=== PATIENT | male | born 1940 | race Caucasian/White ===

== ENCOUNTER → 2017-01-06 | Outpatient (CLI) | payer MEDICARE, OTHER ==
[~2017-01-06] VITALS: Ht 168.9 cm; Wt 59.0 kg
[~2017-01-06] MED LIST: FINA5TAB41 PO; FLAX340P PO; LEVO50TA4 PO; LORA10TA7 PO; PRAM0.258 PO; TAMS0.4C32 PO; UBID100C10 PO; VITAD1000 PO; [UNRECOGNIZED DRUG - CODE] MC
[2017-01-06 11:26] VITALS: BP 102/71
== END | disposition home or self-care (01) ==
LOC: SRCNTR 11:17
PROVIDERS: ATTEND Internal Medicine Critical Care Medicine
DX: E03.9 Hypothyroidism, unspecified (principal); J47.9 Bronchiectasis, uncomplicated; J32.9 Chronic sinusitis, unspecified; G47.61 Periodic limb movement disorder
CPT/HCPCS: G0463

== ENCOUNTER → 2017-06-06 | Outpatient (CLI) | payer MEDICARE, OTHER ==
[~2017-06-06] VITALS: Ht 168.9 cm; Wt 59.5 kg
[2017-06-06 13:41] VITALS: BP 104/67
== END | disposition home or self-care (01) ==
LOC: SRCNTR 13:11
PROVIDERS: ATTEND Internal Medicine Critical Care Medicine
DX: J47.9 Bronchiectasis, uncomplicated (principal); E03.9 Hypothyroidism, unspecified; J32.9 Chronic sinusitis, unspecified; G47.61 Periodic limb movement disorder; N40.0 Benign prostatic hyperplasia without lower urinary tract symptoms; G47.33 Obstructive sleep apnea (adult) (pediatric)
CPT/HCPCS: G0463

== ENCOUNTER → 2017-12-30 | Outpatient (CLI) | payer MEDICARE, OTHER ==
[~2017-12-30] VITALS: Ht 168.9 cm; Wt 61.0 kg
[2017-12-30 12:07] VITALS: BP 98/63
== END | disposition home or self-care (01) ==
LOC: SRCNTR 11:56
PROVIDERS: ATTEND Internal Medicine Critical Care Medicine
DX: G47.33 Obstructive sleep apnea (adult) (pediatric) (principal); J47.9 Bronchiectasis, uncomplicated; J32.9 Chronic sinusitis, unspecified; G47.61 Periodic limb movement disorder; E03.9 Hypothyroidism, unspecified; N40.0 Benign prostatic hyperplasia without lower urinary tract symptoms
CPT/HCPCS: G0463

== ENCOUNTER → 2018-07-27 | Outpatient (CLI) | payer MEDICARE, OTHER ==
[~2018-07-27] VITALS: Ht 167.6 cm; Wt 60.0 kg
[~2018-07-27] MED LIST changes: -LORA10TA7 PO; -UBID100C10 PO
[2018-07-27 15:51] VITALS: BP 101/56
== END | disposition home or self-care (01) ==
LOC: SRCNTR 15:34
PROVIDERS: ATTEND Internal Medicine Critical Care Medicine
DX: J47.1 Bronchiectasis with (acute) exacerbation (principal); R91.8 Other nonspecific abnormal finding of lung field; E03.9 Hypothyroidism, unspecified; J32.9 Chronic sinusitis, unspecified; N40.0 Benign prostatic hyperplasia without lower urinary tract symptoms
CPT/HCPCS: G0463

== ENCOUNTER → 2018-12-10 | Outpatient (CLI) | payer MEDICARE, OTHER ==
[~2018-12-10] VITALS: Ht 170.2 cm; Wt 61.0 kg
[2018-12-10 10:56] VITALS: BP 121/51
== END | disposition home or self-care (01) ==
LOC: SRCNTR 10:41
PROVIDERS: ATTEND Internal Medicine Critical Care Medicine
DX: J47.9 Bronchiectasis, uncomplicated (principal); K86.1 Other chronic pancreatitis; E78.5 Hyperlipidemia, unspecified; Z00.00 Encounter for general adult medical examination without abnormal findings; R91.8 Other nonspecific abnormal finding of lung field; J32.9 Chronic sinusitis, unspecified
CPT/HCPCS: G0463

== ENCOUNTER → 2019-01-13 | Outpatient (CLI) | payer MEDICARE, OTHER ==
[~2019-01-13] VITALS: Ht 170.2 cm; Wt 58.5 kg
[~2019-01-13] MED LIST changes: +IOVERSOL 320 MG/ML 100 ML VIAL ONE; +SODIUM CHLORIDE 0.9% 100 ML ONE; -[UNRECOGNIZED DRUG - CODE] MC
[2019-01-13 15:26] VITALS: BP 110/65
== END | disposition home or self-care (01) ==
LOC: SRCNTR 15:11
PROVIDERS: ATTEND Internal Medicine Critical Care Medicine
DX: J47.9 Bronchiectasis, uncomplicated (principal); R91.8 Other nonspecific abnormal finding of lung field; E03.9 Hypothyroidism, unspecified; J32.9 Chronic sinusitis, unspecified
CPT/HCPCS: G0463; J7050; Q9967

== ENCOUNTER 2020-04-01 19:24 | Emergency (ER) | payer MEDICARE, OTHER ==
[~2020-04-01] VITALS: Ht 170.2 cm; Wt 57.3 kg
[~2020-04-01 19:24] MED LIST changes: +CHOL100018 PO; +FINA-27 PO; -FINA5TAB41 PO; -IOVERSOL 320 MG/ML 100 ML VIAL ONE; -SODIUM CHLORIDE 0.9% 100 ML ONE; +TAMS-13 PO; -TAMS0.4C32 PO; -VITAD1000 PO
[2020-04-01] MEDS ORDERED: QUEtiapine FUMARATE 100 MG TABLET PO PRN (20:45)
[2020-04-01] MEDS ORDERED: LORazepam 2 MG TABLET PO PRN (20:45)
[2020-04-01] MEDS ORDERED: ZOLPIDEM TARTRATE 10 MG TABLET PO PRN (20:45)
[2020-04-01 22:19] VITALS: BP 130/70
== END 2020-04-01 22:20 | disposition home or self-care (01) ==
LOC: EMS 19:24
DX: S93.401A Sprain of unspecified ligament of right ankle, initial encounter (principal); W10.9XXA Fall (on) (from) unspecified stairs and steps, initial encounter; Y93.89 Activity, other specified; Y92.89 Other specified places as the place of occurrence of the external cause; Y99.8 Other external cause status

== ENCOUNTER 2024-11-10 08:43 | Emergency (ER) | payer MEDICARE, OTHER ==
[~2024-11-10] VITALS: Ht 165.1 cm; Wt 63.6 kg
[~2024-11-10 08:43] MED LIST changes: -CHOL100018 PO; -FLAX340P PO; -PRAM0.258 PO; +PRAM0.259 PO; -TAMS-13 PO; +TAMS0.4C94 PO
[2024-11-10 08:55] VITALS: BP 115/78; PULSE 72; RESP 18; TEMP 98; O2SAT 99
[2024-11-10 09:27] LABS: COVID AG,FIA SOURCE NASAL SWAB
[2024-11-10 09:48] LABS: SARS-COV2 (COVID) ANTIGEN,FIA Negative (Negative)
[2024-11-10 09:49] LABS: INFLUENZA TYPE A NEGATIVE FOR TYPE A (NEGATIVE); INFLUENZA TYPE B NEGATIVE FOR TYPE B (NEGATIVE)
== END 2024-11-10 10:18 | disposition home or self-care (01) ==
LOC: EMS 08:53
DX: R09.89 Other specified symptoms and signs involving the circulatory and respiratory systems (principal); E03.9 Hypothyroidism, unspecified; G47.30 Sleep apnea, unspecified; Z90.89 Acquired absence of other organs; Z20.822 Contact with and (suspected) exposure to COVID-19
CPT/HCPCS: 87804; 99283